=== PATIENT | female | born 1970 | race Caucasian/White ===

== ENCOUNTER 2018-11-27 12:24 | Emergency (ER) | payer OTHER, SELFPAY ==
[2018-11-27 12:23] VITALS: BP 109/70; PULSE 58; RESP 16; TEMP 36.2; O2SAT 100
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
[2018-11-27] MEDS: fentaNYL 100 MCG/2 ML VIAL ×2 (14:15→15:15)
--- NOTE | 2018-11-27 16:17 | DI.RAD_ITS ---
SYMPTOM/DIAGNOSIS: S/P REDUCTION LEFT WRIST: Three views were obtained and shows the wrist in a splint with improved reduction of fracture fragments of the distal radius in comparison with examination obtained earlier today.
--- NOTE | 2018-11-27 16:43 | DI.VRAD_ITS ---
EXAM: XR Left Wrist EXAM DATE/TIME: 11/27/2018 4:05 PM CLINICAL HISTORY: 48 years old, female; Signs and symptoms; Other: Post reduction TECHNIQUE: Imaging protocol: XR Left wrist. Views: 3 or more views. COMPARISON: CR XR WRIST LT COMPLETE 11/27/2018 1:27 PM FINDINGS: Closed reduction of distal radial fracture in improved alignment now near anatomic. Splint in good position. No new fractures. IMPRESSION: Closed reduction of distal radial fracture in markedly improved alignment. Dictated and Authenticated by: Scott Mansfield MD. Ordering:RACHEL Araiza MD
[2018-11-27] MEDS: oxyCODONE 5 MG TAB 15 MG PO (17:07)
== END 2018-11-27 16:56 | disposition home or self-care (01) ==
PROVIDERS: Emergency Provider Physician Assistant
DX: S52.592A Other fractures of lower end of left radius, initial encounter for closed fracture (principal); S61.412A Laceration without foreign body of left hand, initial encounter; V17.0XXA Pedal cycle driver injured in collision with fixed or stationary object in nontraffic accident, initial encounter
CPT/HCPCS: 12001; 90471; 25605; 73110; 73130; J3010; L3650